=== PATIENT | male | born 1955 | race Caucasian/White ===

== ENCOUNTER 2019-03-01 00:05 | Inpatient (IN) | payer SELFPAY ==
[~2019-03-01] VITALS: Ht 177.8 cm; Wt 121.2 kg
[2019-03-01] MEDS ORDERED: IV D5/0.45 NACL 1,000 ML IV PRN (01:54)
[2019-03-01 02:00] VITALS: BP 142/75
[2019-03-01] MEDS ORDERED: MORPHINE SULFATE INJ 2 MG/ML DISP.SYRIN IV PRN ×3 (02:00→17:00)
[2019-03-01] MEDS ORDERED: ACETAMINOPHEN 325 MG TABLET PO PRN (02:00)
[2019-03-01] MEDS ORDERED: ONDANSETRON HCL/PF 4 MG/2 ML VIAL IVP PRN (02:00)
--- NOTE | 2019-03-01 02:00 | NUR ---
MS SALT GRINDER NOTE PATIENT ARRIVED TO UNIT VIA GURNEY WITH 4 EMT ESCORTS. PATIENT AMBULATED TO BED, STEADY GAIT. A/O X4. ON OXYGEN 2L/MIN VIA NASAL CANNULA. RESPIRATIONS ARE EVEN AND UNLABORED. NO S/S SOB. STATES PAIN IS 2/10. IN NO APPARENT DISTRESS AT THIS TIME. IV ACCESS IN RAC #20 PATENT AND SALINE LOCKED. INITIAL PHYSICAL ASSESSMENT COMPLETED AT THIS TIME. SKIN ASSESSMENT COMPLETED AT THIS TIME. BELONGINGS LIST COMPLETED BY FLAP MAKER AND PLACED IN CHART. MRSA SWAB DONE. BED IS LOW AND LOCKED, HOB 20 DEGREES, SIDE RAILS UP X2. ORIENTED TO CALL LIGHT, LEFT WITHIN REACH. WILL CONTINUE TO MONITOR.
[2019-03-01] MEDS ORDERED: CEFTRIAXONE 1 G in IV D5W 50 ML IV SCH ×2 (02:30→21:00)
[2019-03-01] MEDS ORDERED: hydrALAZINE HCL IV 20 MG VIAL IV PRN (03:00)
--- NOTE | 2019-03-01 03:04 | NUR ---
OG ROCEPHINE WAS ADMINISTERED AT [facility] AT 2151 ER. FEB 28.
[2019-03-01] MEDS ORDERED: METRONIDAZOLE 500MG/ NS 100ML 100 ML IV ONE (04:46)
[2019-03-01] MEDS: METRONIDAZOLE 500MG/ NS 100ML 500 MG in PREMIX 1 EA IV SCH ×3 (04:48→20:33)
--- NOTE | 2019-03-01 06:24 | NUR ---
MS RN CLOSING NOTE PATIENT IN BED. A/O X4. ON OXYGEN 2L/MIN VIA NASAL CANNULA. RESPIRATIONS ARE EVEN AND UNLABORED. NO SOB NOTED. NO C/O PAIN.NO DISTRESS NOTED. IV ACCESS REMAINS IN RAC #20 RUNNING D5 04/22 NS @80ML/HR. BED IS LOW AND LOCKED, SIDE RAILS UP X2, HOB FLAT, CALL LIGHT WITHIN REACH. WILL ENDORSE TO NEXT SHIFT FOR NAKIA.
[2019-03-01 06:26] LABS: BASOPHILS % (AUTO) 0.1 % (0.0-2.0); EOSINOPHILS % (AUTO) 0.2 % (0.0-6.0); HEMATOCRIT 46 % (39-51); HEMOGLOBIN 15.2 g/dL (13.5-17.5); LYMPHOCYTES # (AUTO) 0.9 /CMM (0.8-4.8); LYMPHOCYTES % (AUTO) 5.7 % (20.0-44.0); MEAN CORPUSCULAR HGB CONC 33 g/dl (31.0-36.0); MEAN CORPUSCULAR VOLUME 86 fL (80-96); MONOCYTES # (AUTO) 0.8 /CMM (0.1-1.30); MONOCYTES % (AUTO) 4.8 % (2.0-12.0); NEUTROPHILS % (AUTO) 89.2 % (43.0-81.0); PLATELET COUNT (AUTO) 283 /CMM (150-450); RED BLOOD CELL COUNT(AUTO) 5.35 MIL/uL (4.5-6.0); WHITE BLOOD COUNT (AUTO) 15.7 K/uL (4.3-11.0)
[2019-03-01 06:34] LABS: ALBUMIN 3.4 g/dL (3.4-5.0); BILIRUBIN,TOTAL 0.3 mg/dL (0.2-1.0); CALCIUM, SERUM 8.4 mg/dL (8.5-10.1); CREATININE 1.2 mg/dL (0.6-1.3); MAGNESIUM 2.1 mg/dL (1.8-2.4); PHOSPHORUS 3.5 mg/dL (2.5-4.9); POTASSIUM 5.3 mmol/L (3.5-5.1); TOTAL PROTEIN, SERUM 7.5 g/dL (6.4-8.2)
[2019-03-01 06:40] LABS: THYROID STIMULATING HORMONE 1.427 uIU/mL (0.358-3.74)
[2019-03-01] MEDS ORDERED: PARO40TA4 PO (07:29)
--- NOTE | 2019-03-01 07:30 | NUR ---
MS/ RN OPENING NOTE PATIENT RECEIVED IN BED, A/0 X4, SHOWING NO SIGNS OF ACUTE DISTRESS OR SOB. IV LINE RAC 20G IS CLEAN AND PATENT, SHOWING NO SIGNS OF INFILTRATION. BED IS IN LOWEST POSITION, SIDE RAILS X2 IN UPRIGHT POSITION. CALL LIGHT IS WITHIN REACH AND PATIENT IS AWARE OF HOW TO CALL FOR ASSISTANCE WHEN NEEDED. WILL CONTINUE WITH CURRENT PLAN OF CARE.
[2019-03-01 08:07] VITALS: BP 161/98
[2019-03-01 10:55] LABS: THYROID STIMULATING HORMONE 1.394 uIU/mL (0.358-3.74)
--- NOTE | 2019-03-01 11:12 | NUR ---
MS/HIDE MILL MAN S/B BY SURGEON DR. MARY CUNNINGHAM, SCHEDULED TO HAVE SURGERY LAP CHOLECYSTECTOMY AND POSSIBLE OPEN AT 1400 TODAY. PATIENT INFORMED AND CONSENT SIGNED.
--- NOTE | 2019-03-01 11:13 | NUR ---
MS/SCREEN TENDER CHANDRAKANT OLSON NOTIFIED ABOUT SURGERY LAP CHOLECYSTECTOMY AND POSSIBLE OPEN TODAY AT 2PM
[2019-03-01 11:40] LABS: APPEARANCE,URINE CLEAR (CLEAR); BILIRUBIN,URINE NEGATIVE (NEGATIVE); BLOOD, URINE TRACE-INTA Ery/uL (NEGATIVE); COLOR,URINE YELLOW (YELLOW); KETONES,URINE NEGATIVE (NEGATIVE); LEUKOCYTE ESTERASE ,URINE NEGATIVE (NEGATIVE); NITRITE, URINE NEGATIVE (NEGATIVE); PH,URINE 5.5 (5.0-8.0); PROTEIN,URINE TRACE mg/dl (NEGATIVE); UGLUCOSE NEGATIVE (NEGATIVE); UROBILINOGEN,URINE 0.2 EU/dL (0.2)
[2019-03-01 11:56] LABS: BACTERIA,URINE None seen /HPF (None Seen); SQUAMOUS EPITHELIAL CELL,UR Rare /HPF (None Seen); WBC,URINE 0-1 /HPF (0-3)
--- NOTE | 2019-03-01 13:12 | NUR ---
MS/RN PATIENT CLEARED FOR SURGERY PER . S/B CHANDRAKANT OLSON DNP. VITALSW 118/71, HR 86, R18, T 98.4, 02 SAT 96% 2L NC.
--- NOTE | 2019-03-01 13:46 | NUR ---
rn notes patient stable no acute respiratory distress, v/s retaken bp -118/ 71, p-86, bmp lab withdraw, order picker for surgery at this time
[2019-03-01] MEDS ORDERED: BUPIVACAINE 0.5 % PF 150 MG/30 ML VIAL ONE ×2 (13:49→14:04)
[2019-03-01] MEDS ORDERED: ROCURONIUM BROMIDE 50 MG/5 ML ONE (13:55)
[2019-03-01] MEDS ORDERED: FENTANYL PF 100MCG/2ML AMPUL ONE (13:55)
[2019-03-01] MEDS ORDERED: MIDAZOLAM HCL 2 MG/2ML VIAL ONE (13:55)
[2019-03-01 14:40] LABS: CALCIUM, SERUM 8.3 mg/dL (8.5-10.1); CREATININE 1.2 mg/dL (0.6-1.3); POTASSIUM 4.3 mmol/L (3.5-5.1)
[2019-03-01] MEDS ORDERED: HYDROMORPHONE 1 MG/1 ML DISP.SYRIN ONE (15:24)
[2019-03-01] MEDS ORDERED: ZOLPIDEM TARTRATE 5 MG TABLET PO PRN ×2 (15:30→17:00)
[2019-03-01] MEDS ORDERED: ANESTHESIA TRAY IN PYXIS 1 EA TRAY MC ONE (15:52)
[2019-03-01 16:00] VITALS: BP 124/67
--- NOTE | 2019-03-01 16:13 | NUR ---
ms/rn back from OR Patient back from surgery by Dr. Head, a/o x4, no signs of acute distress or sob. Three incisions on the abdomen and MONTY drain present on right lumbar. Vital signs BP 124/67, HR 79, R 19, T 98.4, O2 95% 6L NC. Incentive Spirometry education provided to patient. SCD pumps provided. All new orders carried out as per Dr. Head.
--- NOTE | 2019-03-01 16:35 | NUR ---
MS/RN patient stable, no signs of acute distress or sob, vitals BP 146/75, P 79, R 18, O2 95% 6L NC.
[2019-03-01] MEDS ORDERED: HYDROCODONE/APAP 5/325MG 1 EACH TABLET PO PRN (17:00)
--- NOTE | 2019-03-01 17:59 | NUR ---
MS/RN CLOSING NOTE Patient resting in bed, A/O x4, showing no signs of acute distress or SOB, vital signs BP 124/67, HR 79, O2 95 6L NC. IV line RAC 20g h/l is clean and patent, showing no signs of infiltration. Three abdominal incisions present, MONTY drain on right side present. All due meds given and all patient needs met. Bed is in lowest position, side rails x2 in upright position, call light is within reach and patient is aware of how to call for assistance as needed. Will endorse to shift mechanic.
--- NOTE | 2019-03-01 19:10 | NUR ---
MS RN NOTE RECEIVED PT IN STABLE CONDITION A/O X4, CURRENTLY AWAKE AND WATCHING TV. NO SIGNS SOB OR DISTRESS. NO C/O PAIN OR N/V. SX SITE REMAINS DRY AND IN TACT. MONTY DRAIN NOTED WITH MINIMAL DRAINAGE. IV IN R AC #[address] S/L. ALL CURRENT NEED ATTENDED TO. BED LOW, LOCKED, UPPER RAILS UP, AND CALL LIGHT WITHIN REACH. WILL CONT. TO MONITOR.
[2019-03-01] MEDS: ANCEF 1 GM/50 ML D5W IV SCH ×2 (19:45)
[2019-03-01 20:00] VITALS: BP 104/69
[2019-03-02] MEDS: ANCEF 1 GM/50 ML D5W IV SCH ×4 (01:25→08:29)
[2019-03-02] MEDS: HYDROCODONE/APAP 5/325MG 1 EACH TABLET PO PRN ×3 (01:25→16:03)
[2019-03-02] MEDS: METRONIDAZOLE 500MG/ NS 100ML 500 MG in PREMIX 1 EA IV SCH (04:15)
--- NOTE | 2019-03-02 06:27 | NUR ---
MS RN NOTE PT REMAINS IN STABLE CONDITION A/O X4, CURRENTLY RESTING. NO SIGNS SOB OR DISTRESS. NO C/O PAIN OR N/V. SX SITE REMAINS DRY AND IN TACT. MONTY DRAIN NOTED WITH 30 ML DRAINAGE. IV IN R AC #[address] S/L. ALL CURRENT NEED ATTENDED TO. BED LOW, LOCKED, UPPER RAILS UP, AND CALL LIGHT WITHIN REACH. WILL CONT. TO MONITOR AND ENDORSE TO NEXT SHIFT FOR NAKIA.
[2019-03-02 07:30] VITALS: BP 127/82
[2019-03-02 07:54] LABS: BASOPHILS % (AUTO) 0.1 % (0.0-2.0); EOSINOPHILS % (AUTO) 0.4 % (0.0-6.0); HEMATOCRIT 43 % (39-51); HEMOGLOBIN 13.9 g/dL (13.5-17.5); LYMPHOCYTES # (AUTO) 1.6 /CMM (0.8-4.8); LYMPHOCYTES % (AUTO) 11.4 % (20.0-44.0); MEAN CORPUSCULAR HGB CONC 33 g/dl (31.0-36.0); MEAN CORPUSCULAR VOLUME 87 fL (80-96); MONOCYTES % (AUTO) 7.2 % (2.0-12.0); NEUTROPHILS # (AUTO) 11.4 /CMM (1.8-8.9); NEUTROPHILS % (AUTO) 80.9 % (43.0-81.0); PLATELET COUNT (AUTO) 248 /CMM (150-450); RED BLOOD CELL COUNT(AUTO) 4.92 MIL/uL (4.5-6.0); WHITE BLOOD COUNT (AUTO) 14.1 K/uL (4.3-11.0)
[2019-03-02 08:00] VITALS: BP 127/82
[2019-03-02 08:09] LABS: ALBUMIN 2.9 g/dL (3.4-5.0); BILIRUBIN,TOTAL 0.4 mg/dL (0.2-1.0); CALCIUM, SERUM 8.2 mg/dL (8.5-10.1); CREATININE 1.3 mg/dL (0.6-1.3); MAGNESIUM 2.2 mg/dL (1.8-2.4); PHOSPHORUS 4.5 mg/dL (2.5-4.9); POTASSIUM 4.5 mmol/L (3.5-5.1); TOTAL PROTEIN, SERUM 6.7 g/dL (6.4-8.2)
--- NOTE | 2019-03-02 08:32 | NUR ---
rn notes administered narco 5/325 mg po prn abdomen 09/29 per patient request, v/s taken bp-127/82, p-69, r-18, continued monitoring.
--- NOTE | 2019-03-02 09:00 | NUR ---
rn notes MONTY was removed by surgeon Dr Galicia, MONTY output was 10 ml, picture taken, and put dry dressing and fixed with the tape. Patient will ambulate, later afternoon will d/c home . patient will follow surgeon in one week for staple remove.
--- NOTE | 2019-03-02 10:00 | NUR ---
RN NOTES MEDICATION WERE ADMINISTERED FOR PAIN EFFECTIVE, PATIENT WALKING IN THE HALLWAY.
--- NOTE | 2019-03-02 16:03 | NUR ---
RN NOTES ADMINISTERED NARCO 5/325 MG PO PRN FOR ABDOMINAL PAIN 10/29 PER PATIENT REQUEST, V/S STABLE. CONTINUED MONITORING.
--- NOTE | 2019-03-02 18:30 | NUR ---
RETIREMENT ADMINISTRATOR NOTES PATIENT DISCHARGE AT THIS TIME GOING HOME. PATIENT A/O X4, STABLE REFUSED PAIN, AMBULATORY, PASSING GAS, AND BOWEL MOVEMENT X1. MED RECONCILIATION AND DISCHARGE ORDER REVIEWED AND EXPLAINED TO PATIENT. PATIENT VERBALIZED UNDERSTANDING. PATIENT WILL FOLLOW PRIMARY MD, AND SURGEON Dr CUNNINGHAM FOR STAPLE REMOVAL. PRESCRIPTION HANDED TO THE PATIENT WITH OTHER DISCHARGE PAPERS. BELONGING WITH THE PATIENT. PICTURE TAKEN, PATIENT SIGN PAPERWORK. ESCORTED PATIENT TO THE LOBBY FOR SAFETY . PATIENT JUNIOR BRAND MANAGER BY SISTER NAME SELIN PHONE # [phone]
== END 2019-03-02 18:20 | disposition home or self-care (01) | DRG 418 ==
LOC: MED 01:45
PROVIDERS: ADMIT Nurse Practitioner Acute Care; ATTEND Nurse Practitioner Acute Care
PROC: 0FT44ZZ Resection of Gallbladder, Percutaneous Endoscopic Approach (ICD-10-PCS; principal; 2019-03-01)
DX: K81.0 Acute cholecystitis (principal); I50.32 Chronic diastolic (congestive) heart failure; F32.9 Major depressive disorder, single episode, unspecified; K21.9 Gastro-esophageal reflux disease without esophagitis; E11.9 Type 2 diabetes mellitus without complications; E78.5 Hyperlipidemia, unspecified; E83.51 Hypocalcemia; E87.5 Hyperkalemia; R07.9 Chest pain, unspecified; E66.9 Obesity, unspecified; Z68.38 Body mass index [BMI] 38.0-38.9, adult; G47.33 Obstructive sleep apnea (adult) (pediatric); D72.829 Elevated white blood cell count, unspecified; I11.0 Hypertensive heart disease with heart failure
CPT/HCPCS: 36415; 80048-TC; 80053-TC; 80061-TC; 81000-TC; 82088; 83735-TC; 84100-TC; 84244; 84439-TC; 84443-TC; 85025-TC; 85610-TC; 86850-TC; 87081-TC; 87086-TC; 88304-TC; 93307-TC; A4216; G0378; J0360; J0690; J0696; J1100; J1170; J1885; J2250; J2704; J2710; J3010; J3490; J7030; J7060